=== PATIENT | male | born 1945 | race Caucasian/White ===

== ENCOUNTER 2018-06-30 17:55 | Emergency (ER) | payer MEDICARE, OTHER ==
[~2018-06-30] VITALS: Ht 172.7 cm; Wt 81.8 kg
[2018-06-30] MEDS ORDERED: ZESTORETIC 12.51 TA1 PO (18:15)
[2018-06-30] MEDS ORDERED: ZOCOR 10MG10 MG PO (18:15)
[2018-06-30] MEDS ORDERED: PROSCAR 5MG5 MG PO (18:16)
[2018-06-30] MEDS ORDERED: FISH OIL 1000MG1 CAP PO (18:16)
[2018-06-30] MEDS ORDERED: LUTEIN20 M1 PO (18:16)
[2018-06-30] MEDS ORDERED: PRILOSEC 20MG20 MG PO (18:17)
[2018-06-30 18:25] VITALS: TEMP 96.6
[2018-06-30 19:22] VITALS: BP 140/82; PULSE 67
[2018-06-30] MEDS ORDERED: PREDNISONE20 MG PO (19:23)
[2018-06-30] MEDS ORDERED: ATACAND HCT 161 TAB PO (19:23)
== END 2018-06-30 20:10 | disposition home or self-care (01) ==
LOC: COL.ER 17:55
DX: T78.3XXA Angioneurotic edema, initial encounter (principal); I10 Essential (primary) hypertension